=== PATIENT | male | born 1970 | race African-American/Black ===

== ENCOUNTER 2016-11-20 10:43 | Inpatient (IN) | payer OTHER ==
[2016-11-20 12:39] VITALS: BMI 20.6
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
[2016-11-20] MEDS ORDERED: guaiFENesin/D-METHORPHAN HB 10 ML UNIT-DOSE CUPS PO PRN (15:43)
[2016-11-20] MEDS ORDERED: MENTHOL/PHENOL 1 EACH UD MM PRN (15:43)
[2016-11-20] MEDS ORDERED: MAGNESIUM CITRATE 300 ML BOTTLE PO PRN (15:43)
[2016-11-20] MEDS ORDERED: MAG HYDROX/AL HYDROX/SIMETH 30 ML UNIT-DOSE CUP PO PRN (15:43)
[2016-11-20] MEDS ORDERED: LOPERAMIDE HCL 2 MG CAPSULE PO PRN (15:43)
[2016-11-20] MEDS ORDERED: NICOTINE POLACRILEX 2 MG GUM BC PRN (15:43)
[2016-11-20] MEDS ORDERED: P-EPHED 60MG/TRIPROLIDI 2.5MG TABLET PO PRN (15:43)
[2016-11-20] MEDS ORDERED: diphenhydrAMINE HCL 50 MG CAPSULE PO PRN (15:43)
[2016-11-20] MEDS ORDERED: hydrOXYzine PAMOATE 50 MG CAPSULE (FP) PO PRN (15:43)
[2016-11-20] MEDS ORDERED: MAGNESIUM HYDROX 2400MG/30ML ORAL SUSPENSION 30 ML CUP PO PRN (15:43)
[2016-11-20] MEDS ORDERED: ACETAMINOPHEN 325 MG TABLET (FP) PO PRN (15:43)
[2016-11-20] MEDS ORDERED: IBUPROFEN 400 MG TABLET (FP) PO PRN (15:43)
[2016-11-20 17:08] LABS: MCH 31.5 pg (25.7-33.7); MCHC 33.8 g/dl (32.0-35.9); MEAN CELL VOLUME 93.1 fl (80-96); MEAN PLT VOLUME 8.2 fl (7.5-11.1); PLATELET COUNT 284 K/MM3 (134-434); RDW 13.7 % (11.9-15.9); WHITE BLOOD COUNT 4.8 K/mm3 (4.0-10.0)
[2016-11-20 17:18] LABS: ALBUMIN 3.4 g/dl (3.4-5.0); ANION GAP 6 (8-16); CALCIUM 8.8 mg/dL (8.5-10.1); CO2 27 mmol/L (21-32); GLUCOSE,RANDOM 116 mg/dL (74-106); SGOT/AST 25 U/L (15-37); SGPT/ALT 33 U/L (12-78)
[2016-11-20] MEDS ORDERED: TUBERCULIN PPD 5 TU/0.1ML VIAL ID ONE (17:18)
[2016-11-20 17:20] LABS: ALK PHOS 113 U/L (45-117); BILIRUBIN,TOTAL 0.3 mg/dL (0.2-1.0); TOT PROT 6.6 g/dl (6.4-8.2)
[2016-11-20] MEDS: NICOTINE 21 MG/24 HOURS TOPICAL PATCH TD SCH (17:50)
[2016-11-20] MEDS: THIAMINE HCL 100 MG TABLET (FP) PO SCH (21:21)
[2016-11-20 21:26] LABS: URINE APPEARANCE SLCLOUDY; URINE BILIRUBIN NEGATIVE (NEGATIVE); URINE BLOOD NEGATIVE (NEGATIVE); URINE COLOR LTYELLOW; URINE GLUCOSE (UA) NEGATIVE (NEGATIVE); URINE KETONE NEGATIVE (NEGATIVE); URINE NITRITE NEGATIVE (NEGATIVE); URINE PROTEIN NEGATIVE (NEGATIVE); URINE UROBILINOGEN NEGATIVE mg/dL (0.2-1.0)
[2016-11-20 21:39] LABS: URINE LEUK ESTERASE 3+ (NEGATIVE)
[2016-11-20 21:47] LABS: CALCIUM OXALATE CRYSTALS RARE /hpf (NONE SEEN); URINE RBC 8 /hpf (0-3); URINE WBC 24 /hpf (3-5)
[2016-11-21] MEDS: NICOTINE 21 MG/24 HOURS TOPICAL PATCH TD SCH (10:26)
[2016-11-21] MEDS: PRENATAL VITAMINS W/ FOLIC ACID TABLET (FP) PO SCH (10:26)
--- NOTE | 2016-11-21 10:56 | HP ---
Psychiatrist Admission - Data Date of interview: 11/21/16 Admission source: Self-referred Identifying data: This is the first [facility] admission for this 46 years old single Black male, father of 5 children, unemployed on public assistance, homeless Medical History: Significant for Asthma, and history of surgery right hand in 1994. Smokes 10 cigarettes daily Psychiatric History: Reports that his first psychiatric contact was in in 1991 when he was admitted to [facility] for depression/anxiety in the context of of a cousin. Reports multiple subsequent admissions to [facility] and most recently to [facility] in 1994. Reports seeing a few psychiatrist in [place]. He last saw Dr Chakraborty last month and was prescribed Prozac 20 mg po daily and Xanax 1 mg po BID. He does not want to continue medication during that admission. At present, reports feeling depressed due to psychosocial stressors Physical/Sexual Abuse/Trauma History: Denies history of verbal, physical or sexual abuse as well as DV relationship Additional Comment: Reports history of multiple arrests including 4 felony convictions. No parole/probation currently Vital Signs: Vital Signs - 24 hr 11/20/16 11/21/16 11/21/16 12:33 00:30 03:30 Temperature 96.8 F L Pulse Rate 89 Respiratory 20 18 18 Rate Blood Pressure 126/82 11/21/16 07:02 Temperature 98.5 F Pulse Rate 91 H Respiratory 18 Rate Blood Pressure 118/83 Allergies/Adverse Reactions: Allergies Allergy/AdvReac Type Severity Reaction Status Date / Time No Known Allergies Allergy Verified 11/20/16 14:56 Date of last physical exam: 11/20/16 Concur with the findings of this exam: Yes - Substance Abuse/Tx History Hx Alcohol Use: No Hx Substance Use: Yes Substance Use Type: Cocaine (Started smoking crack cocaine at age 46, consumes $ 100-150 worth daily. Last smoked on 11/19/16), Marijuana (Started smoking marijuana at age 11, consumes $20 worth daily. Last smoked on 11/19/16) Hx Substance Use Treatment: Yes ([facility] inpatient rehab 02/15/16-03/15/16) Mental Status Exam - Mental Status Exam Alert and Oriented to: Time, Place, Person Cognitive Function: Fair Patient Appearance: Well Groomed Mood: Depressed Affect: Appropriate Patient Behavior: Cooperative Speech Pattern: Clear Voice Loudness: Normal Thought Process: Intact Thought Disorder: Not Present Hallucinations: Denies Suicidal Ideation: Denies Homicidal Ideation: Denies Insight/Judgement: Fair Sleep: Well Appetite: Good Muscle strength/Tone: Normal Gait/Station: Normal Psychiatric Findings - Problem List ([place] 1, 2,3) (1) Cocaine dependence Current Visit: Yes Status: Acute (2) Nicotine dependence Current Visit: Yes Status: Acute (3) Depressive disorder Current Visit: Yes Status: Acute (4) Substance induced mood disorder Current Visit: Yes Status: Acute (5) Asthma Current Visit: Yes Status: Acute (6) Laceration of face Current Visit: Yes Status: Acute (7) Subconjunctival hemorrhage of right eye Current Visit: Yes Status: Acute (8) Cannabis dependence Current Visit: No Status: Acute - Initial Treatment Plan Initial Treatment Plan: Monitor progress
[2016-11-21 11:29] LABS: HIV 1 & 2 AB NEGATIVE; HIV 1 AGp24 NEGATIVE
--- NOTE | 2016-11-21 16:00 | EKG ---
Test Reason : Blood Pressure : / mmHG Vent. Rate : 080 BPM Atrial Rate : 080 BPM P-R Int : 132 ms QRS Dur : 082 ms QT Int : 378 ms P-R-T Axes : 073 081 068 degrees QTc Int : 435 ms NORMAL SINUS RHYTHM VOLTAGE CRITERIA FOR LEFT VENTRICULAR HYPERTROPHY ABNORMAL ECG NO PREVIOUS ECGS AVAILABLE Confirmed by ADAM BARBER, CANDACE ([id number]) on 11/21/2016 4:00:27 PM Referred By: Dewayne Gupta Confirmed By:CANDACE MEDINA MD
[2016-11-21] MEDS: THIAMINE HCL 100 MG TABLET (FP) PO SCH (21:42)
[2016-11-22] MEDS: PRENATAL VITAMINS W/ FOLIC ACID TABLET (FP) PO SCH (10:03)
[2016-11-22] MEDS: NICOTINE 21 MG/24 HOURS TOPICAL PATCH TD SCH (10:03)
[2016-11-22] MEDS: NAPROXEN 500 MG TABLET (FP) PO SCH (22:03)
[2016-11-22] MEDS: PANTOPRAZOLE 40 MG TABLET (FP) PO SCH (22:04)
[2016-11-22] MEDS: BACITRACIN 0.9 GM PACKET TP SCH (22:04)
[2016-11-22] MEDS: THIAMINE HCL 100 MG TABLET (FP) PO SCH (22:06)
[2016-11-23] MEDS: PRENATAL VITAMINS W/ FOLIC ACID TABLET (FP) PO SCH (09:50)
[2016-11-23] MEDS: NICOTINE 21 MG/24 HOURS TOPICAL PATCH TD SCH (09:50)
[2016-11-23] MEDS: NAPROXEN 500 MG TABLET (FP) PO SCH ×2 (09:50→21:37)
[2016-11-23] MEDS: PANTOPRAZOLE 40 MG TABLET (FP) PO SCH (09:50)
[2016-11-23] MEDS: BACITRACIN 0.9 GM PACKET TP SCH (09:50)
[2016-11-23] MEDS: THIAMINE HCL 100 MG TABLET (FP) PO SCH (21:36)
[2016-11-24 07:24] VITALS: BP 102/68; PULSE 86; TEMP 99
[2016-11-24] MEDS: NICOTINE 21 MG/24 HOURS TOPICAL PATCH TD SCH (09:59)
[2016-11-24] MEDS: PANTOPRAZOLE 40 MG TABLET (FP) PO SCH (09:59)
[2016-11-24] MEDS: BACITRACIN 0.9 GM PACKET TP SCH (09:59)
[2016-11-24] MEDS: PRENATAL VITAMINS W/ FOLIC ACID TABLET (FP) PO SCH (09:59)
[2016-11-24] MEDS: NAPROXEN 500 MG TABLET (FP) PO SCH (09:59)
== END 2016-11-24 14:15 | disposition left against medical advice (07) | DRG 770 ==
LOC: YASAS 10:43 → Y3W 16:42
PROVIDERS: ADMIT Psychiatry & Neurology Psychiatry; ATTEND Psychiatry & Neurology Psychiatry
PROC: HZ42ZZZ Group Counseling for Substance Abuse Treatment, Cognitive-Behavioral (ICD-10-PCS; principal; 2016-11-20)
DX: F14.20 Cocaine dependence, uncomplicated (principal); F12.20 Cannabis dependence, uncomplicated; F17.210 Nicotine dependence, cigarettes, uncomplicated; F39 Unspecified mood [affective] disorder; F19.24 Other psychoactive substance dependence with psychoactive substance-induced mood disorder; J45.909 Unspecified asthma, uncomplicated; H11.31 Conjunctival hemorrhage, right eye; S01.81XD Laceration without foreign body of other part of head, subsequent encounter; X58.XXXD Exposure to other specified factors, subsequent encounter
CPT/HCPCS: 36415; 80053; 81003; 81015; 85027; 86593; 87389; 93005; 93010

== ENCOUNTER 2017-01-15 09:06 | Inpatient (IN) | payer OTHER ==
[2017-01-15 10:51] VITALS: BMI 20.9
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
[2017-01-15] MEDS ORDERED: hydrOXYzine PAMOATE 25 MG CAPSULE (FP) PO PRN (11:52)
[2017-01-15] MEDS ORDERED: MAGNESIUM CITRATE 300 ML BOTTLE PO PRN (11:52)
[2017-01-15] MEDS ORDERED: MENTHOL/PHENOL 1 EACH UD MM PRN (11:52)
[2017-01-15] MEDS ORDERED: chlordiazePOXIDE HCL 25 MG CAPSULE PO PRN (11:52)
[2017-01-15] MEDS ORDERED: MAG HYDROX/AL HYDROX/SIMETH 30 ML UNIT-DOSE CUP PO PRN (11:52)
[2017-01-15] MEDS ORDERED: MAGNESIUM HYDROX 2400MG/30ML ORAL SUSPENSION 30 ML CUP PO PRN (11:52)
[2017-01-15] MEDS ORDERED: P-EPHED 60MG/TRIPROLIDI 2.5MG TABLET PO PRN (11:52)
[2017-01-15] MEDS ORDERED: ACETAMINOPHEN 325 MG TABLET (FP) PO PRN (11:52)
[2017-01-15] MEDS ORDERED: guaiFENesin/D-METHORPHAN HB 10 ML UNIT-DOSE CUPS PO PRN (11:52)
[2017-01-15] MEDS ORDERED: LOPERAMIDE HCL 2 MG CAPSULE PO PRN (11:52)
[2017-01-15] MEDS ORDERED: IBUPROFEN 400 MG TABLET (FP) PO PRN (11:52)
[2017-01-15] MEDS ORDERED: ALBUTEROL SO4 18 GM HFA INHALER IH PRN (11:56)
[2017-01-15] MEDS ORDERED: chlordiazePOXIDE HCL 25 MG CAPSULE PO ONE (12:34)
[2017-01-15] MEDS: NICOTINE 14 MG/24 HOURS TOPICAL PATCH TD SCH (13:18)
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
[2017-01-15] MEDS: chlordiazePOXIDE HCL 25 MG CAPSULE PO SCH ×2 (18:07→22:17)
[2017-01-15] MEDS: THIAMINE HCL 100 MG TABLET (FP) PO SCH (22:17)
[2017-01-15 22:30] LABS: URINE APPEARANCE SLCLOUDY; URINE BILIRUBIN NEGATIVE (NEGATIVE); URINE BLOOD NEGATIVE (NEGATIVE); URINE COLOR YELLOW; URINE GLUCOSE (UA) NEGATIVE (NEGATIVE); URINE KETONE NEGATIVE (NEGATIVE); URINE NITRITE NEGATIVE (NEGATIVE); URINE PROTEIN NEGATIVE (NEGATIVE); URINE UROBILINOGEN NEGATIVE mg/dL (0.2-1.0)
[2017-01-16] MEDS: chlordiazePOXIDE HCL 25 MG CAPSULE PO SCH ×4 (05:33→22:41)
[2017-01-16 10:34] LABS: MCH 30.5 pg (25.7-33.7); MCHC 33.2 g/dl (32.0-35.9); MEAN PLT VOLUME 9.1 fl (7.5-11.1); PLATELET COUNT 234 K/MM3 (134-434); RDW 12.9 % (11.9-15.9); WHITE BLOOD COUNT 5.1 K/mm3 (4.0-10.0)
[2017-01-16] MEDS: PRENATAL VITAMINS W/ FOLIC ACID TABLET (FP) PO SCH (10:47)
[2017-01-16 10:55] LABS: ALBUMIN 3.5 g/dl (3.4-5.0); ANION GAP 13 (8-16); BILIRUBIN,TOTAL 0.4 mg/dL (0.2-1.0); CALCIUM 8.6 mg/dL (8.5-10.1); CO2 23 mmol/L (21-32); CREATININE 1.1 mg/dL (0.7-1.3); GLUCOSE,RANDOM 122 mg/dL (74-106); SGOT/AST 22 U/L (15-37); SGPT/ALT 22 U/L (12-78); TOT PROT 6.5 g/dl (6.4-8.2)
[2017-01-16 10:56] LABS: ALK PHOS 120 U/L (45-117)
[2017-01-16] MEDS: NICOTINE 14 MG/24 HOURS TOPICAL PATCH TD SCH (11:00)
--- NOTE | 2017-01-16 11:01 | PN ---
S CIWA - CIWA Score Nausea/Vomitin Muscle Tremors: 3 Anxiety: 3 Agitation: 2 Paroxysmal Sweats: 1-Minimal Palms Moist Orientation: 0-Oriented Tacttile Disturbances: 1-Very Mild Itch/Numbness Auditory Disturbances: 1-Very Mild Visual Disturbances: 0-None Headache: 2-Mild CIWA-Ar Total Score: 16 BHS Progress Note (SOAP) Subjective: ALERT,IRRITABLE,ANXIOUS,INTERRUPTED SLEEP,TREMOR Objective: 01/16/17 10:58 Vital Signs Temperature 97.3 F L 01/16/17 10:33 Pulse Rate 107 H 01/16/17 10:33 Respiratory Rate 18 01/16/17 10:33 Blood Pressure 150/60 01/16/17 10:33 O2 Sat by Pulse Oximetry (%) EKG NSR,LVH NO CHEST PAIN,NO SOB,NO DIZZINESS Laboratory Last Values WBC 5.1 K/mm3 (4.0-10.0) 01/16/17 06:00 RBC 4.35 M/mm3 (4.00-5.60) 01/16/17 06:00 Hgb 13.3 GM/dL (11.7-16.9) 01/16/17 06:00 Hct 40.0 % (35.4-49) 01/16/17 06:00 MCV 92.0 fl (80-96) 01/16/17 06:00 MCH 30.5 pg (25.7-33.7) 01/16/17 06:00 MCHC 33.2 g/dl (32.0-35.9) 01/16/17 06:00 RDW 12.9 % (11.9-15.9) 01/16/17 06:00 Plt Count 234 K/MM3 (134-434) 01/16/17 06:00 MPV 9.1 fl (7.5-11.1) D 01/16/17 06:00 POC Glucometer 122 UNITS (80-120) 01/16/17 05:35 Urine Color Yellow 01/15/17 18:55 Urine Appearance Slcloudy 01/15/17 18:55 Urine pH 5.0 (5.0-8.0) 01/15/17 18:55 Ur Specific [place] 1.025 (1.001-1.035) 01/15/17 18:55 Urine Protein Negative (NEGATIVE) 01/15/17 18:55 Urine Glucose (UA) Negative (NEGATIVE) 01/15/17 18:55 Urine Ketones Negative (NEGATIVE) 01/15/17 18:55 Urine Blood Negative (NEGATIVE) 01/15/17 18:55 Urine Nitrite Negative (NEGATIVE) 01/15/17 18:55 Urine Bilirubin Negative (NEGATIVE) 01/15/17 18:55 Urine Urobilinogen Negative mg/dL (0.2-1.0) 01/15/17 18:55 LABS PENDING Assessment: 01/16/17 11:00 WITHDRAWAL SYMPTOM Plan: CONTINUE DETOX
[2017-01-16 11:09] LABS: URINE LEUK ESTERASE TRACE (NEGATIVE)
--- NOTE | 2017-01-16 12:34 | EKG ---
Test Reason : Blood Pressure : / mmHG Vent. Rate : 083 BPM Atrial Rate : 083 BPM P-R Int : 130 ms QRS Dur : 082 ms QT Int : 384 ms P-R-T Axes : 077 082 076 degrees QTc Int : 451 ms NORMAL SINUS RHYTHM MODERATE VOLTAGE CRITERIA FOR LVH, MAY BE NORMAL VARIANT BORDERLINE ECG WHEN COMPARED WITH ECG OF 20-NOV-2016 21:18, NO SIGNIFICANT CHANGE WAS FOUND Confirmed by ADAM BARBER, CANDACE ([id number]) on 01/16/2017 12:34:35 PM Referred By: Confirmed By:CANDACE MEDINA MD
[2017-01-16 13:30] LABS: URINE RBC 0-1 /hpf (0-3)
[2017-01-16 13:31] LABS: CALCIUM OXALATE CRYSTALS FEW /hpf (NONE SEEN); URINE BACTERIA RARE /hpf (NEGATIVE)
[2017-01-16] MEDS: THIAMINE HCL 100 MG TABLET (FP) PO SCH (22:41)
[2017-01-17] MEDS: chlordiazePOXIDE HCL 25 MG CAPSULE PO SCH ×2 (05:27→11:09)
[2017-01-17] MEDS: PRENATAL VITAMINS W/ FOLIC ACID TABLET (FP) PO SCH (11:09)
[2017-01-17] MEDS: NICOTINE 14 MG/24 HOURS TOPICAL PATCH TD SCH (11:27)
--- NOTE | 2017-01-17 11:45 | PN ---
S CIWA - CIWA Score Nausea/Vomitin Muscle Tremors: 3 Anxiety: 2 Agitation: 2 Paroxysmal Sweats: 1-Minimal Palms Moist Orientation: 0-Oriented Tacttile Disturbances: 1-Very Mild Itch/Numbness Auditory Disturbances: 1-Very Mild Visual Disturbances: 0-None Headache: 2-Mild CIWA-Ar Total Score: 15 BHS Progress Note (SOAP) Subjective: alert,irritable,anxious,interrupted sleep,tremor Objective: 01/17/17 11:44 Vital Signs Temperature 98.0 F 01/17/17 10:22 Pulse Rate 97 H 01/17/17 10:22 Respiratory Rate 16 01/17/17 10:22 Blood Pressure 118/75 01/17/17 10:22 O2 Sat by Pulse Oximetry (%) Laboratory Last Values WBC 5.1 K/mm3 (4.0-10.0) 01/16/17 06:00 RBC 4.35 M/mm3 (4.00-5.60) 01/16/17 06:00 Hgb 13.3 GM/dL (11.7-16.9) 01/16/17 06:00 Hct 40.0 % (35.4-49) 01/16/17 06:00 MCV 92.0 fl (80-96) 01/16/17 06:00 MCH 30.5 pg (25.7-33.7) 01/16/17 06:00 MCHC 33.2 g/dl (32.0-35.9) 01/16/17 06:00 RDW 12.9 % (11.9-15.9) 01/16/17 06:00 Plt Count 234 K/MM3 (134-434) 01/16/17 06:00 MPV 9.1 fl (7.5-11.1) D 01/16/17 06:00 Sodium 143 mmol/L (136-145) 01/16/17 06:00 Potassium 3.8 mmol/L (3.5-5.1) 01/16/17 06:00 Chloride 107 mmol/L (98-107) 01/16/17 06:00 Carbon Dioxide 23 mmol/L (21-32) 01/16/17 06:00 Anion Gap 13 (8-16) 01/16/17 06:00 BUN 13 mg/dL (7-18) D 01/16/17 06:00 Creatinine 1.1 mg/dL (0.7-1.3) 01/16/17 06:00 Creat Clearance w eGFR > 60 (>60) 01/16/17 06:00 POC Glucometer 91 UNITS (80-120) 01/17/17 05:29 Random Glucose 122 mg/dL (74-106) H 01/16/17 06:00 Calcium 8.6 mg/dL (8.5-10.1) 01/16/17 06:00 Total Bilirubin 0.4 mg/dL (0.2-1.0) D 01/16/17 06:00 AST 22 U/L (15-37) 01/16/17 06:00 ALT 22 U/L (12-78) D 01/16/17 06:00 Alkaline Phosphatase 120 U/L (45-117) H 01/16/17 06:00 Total Protein 6.5 g/dl (6.4-8.2) 01/16/17 06:00 Albumin 3.5 g/dl (3.4-5.0) 01/16/17 06:00 Urine Color Yellow 01/15/17 18:55 Urine Appearance Slcloudy 01/15/17 18:55 Urine pH 5.0 (5.0-8.0) 01/15/17 18:55 Ur Specific [place] 1.025 (1.001-1.035) 01/15/17 18:55 Urine Protein Negative (NEGATIVE) 01/15/17 18:55 Urine Glucose (UA) Negative (NEGATIVE) 01/15/17 18:55 Urine Ketones Negative (NEGATIVE) 01/15/17 18:55 Urine Blood Negative (NEGATIVE) 01/15/17 18:55 Urine Nitrite Negative (NEGATIVE) 01/15/17 18:55 Urine Bilirubin Negative (NEGATIVE) 01/15/17 18:55 Urine Urobilinogen Negative mg/dL (0.2-1.0) 01/15/17 18:55 Ur Leukocyte Esterase Trace (NEGATIVE) H 01/15/17 18:55 Urine RBC 0-1 /hpf (0-3) 01/15/17 18:55 Urine WBC 2-4 (0-2) 01/15/17 18:55 Calcium Oxalate Crystal Few /hpf (NONE SEEN) 01/15/17 18:55 Amorphous Urates Moderate /hpf (NONE SEEN) 01/15/17 18:55 Urine Bacteria Rare /hpf (NEGATIVE) 01/15/17 18:55 RPR Titer Nonreactive (NONREACTIVE) 01/16/17 06:00 Assessment: 01/17/17 11:45 withdrawal symptom Plan: continue detox
[2017-01-17] MEDS: chlordiazePOXIDE 5 MG CAPSULE PO SCH ×2 (17:37→22:15)
[2017-01-17] MEDS: THIAMINE HCL 100 MG TABLET (FP) PO SCH (22:15)
[2017-01-18] MEDS: chlordiazePOXIDE 5 MG CAPSULE PO SCH ×2 (05:18→11:27)
[2017-01-18 06:23] VITALS: PULSE 97
[2017-01-18 10:53] VITALS: BP 134/85; TEMP 97.9
[2017-01-18] MEDS: PRENATAL VITAMINS W/ FOLIC ACID TABLET (FP) PO SCH (11:27)
[2017-01-18] MEDS: NICOTINE 14 MG/24 HOURS TOPICAL PATCH TD SCH (11:27)
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
[2017-01-18] MEDS ORDERED: chlordiazePOXIDE HCL 10 MG CAPSULE PO SCH (17:00)
== END 2017-01-18 11:40 | disposition home or self-care (01) | DRG 774 ==
LOC: YASAS 09:06 → Y6N 12:13
PROVIDERS: ADMIT Internal Medicine; ATTEND Internal Medicine
PROC: HZ2ZZZZ Detoxification Services for Substance Abuse Treatment (ICD-10-PCS; principal; 2017-01-15)
DX: F10.230 Alcohol dependence with withdrawal, uncomplicated (principal); F14.20 Cocaine dependence, uncomplicated; F12.20 Cannabis dependence, uncomplicated; F17.210 Nicotine dependence, cigarettes, uncomplicated; F19.24 Other psychoactive substance dependence with psychoactive substance-induced mood disorder; F41.8 Other specified anxiety disorders; G47.00 Insomnia, unspecified; E11.9 Type 2 diabetes mellitus without complications; Z21 Asymptomatic human immunodeficiency virus [HIV] infection status
CPT/HCPCS: 36415; 80053; 81003; 81015; 85027; 86593; 93005; 93010

== ENCOUNTER 2021-03-12 10:40 | Inpatient (IN) | payer OTHER ==
[2021-03-12 11:26] VITALS: BMI 21.7
[2021-03-12] MEDS ORDERED: MENTHOL/PHENOL 1 EACH UD MM PRN (15:50)
[2021-03-12] MEDS ORDERED: MAG HYDROX/AL HYDROX/SIMETH 30 ML UNIT-DOSE CUP PO PRN (15:50)
[2021-03-12] MEDS ORDERED: METHOCARBAMOL 500 MG TABLET PO PRN (15:50)
[2021-03-12] MEDS ORDERED: BISMUTH SUBSALICYLATE 524 MG/30 ML PO PRN (15:50)
[2021-03-12] MEDS ORDERED: NICOTINE 10 MG CARTRIDGE (INHALER) IH PRN (15:50)
[2021-03-12] MEDS ORDERED: MAGNESIUM CITRATE 300 ML BOTTLE PO PRN (15:50)
[2021-03-12] MEDS ORDERED: IBUPROFEN 400 MG TABLET (FP) PO PRN (15:50)
[2021-03-12] MEDS ORDERED: ONDANSETRON *ODT* 4 MG TABLET SL PRN (15:50)
[2021-03-12] MEDS ORDERED: MAGNESIUM HYDROX 2400MG/30ML ORAL SUSPENSION 30 ML CUP PO PRN (15:50)
[2021-03-12] MEDS ORDERED: ACETAMINOPHEN 325 MG TABLET (FP) PO PRN ×2 (15:50)
[2021-03-12] MEDS ORDERED: MELATONIN 5 MG TABLETS PO SCH (22:00)
[2021-03-12] MEDS ORDERED: THIAMINE HCL 100 MG TABLET (FP) PO SCH (22:00)
[2021-03-12] MEDS: hydrOXYzine PAMOATE 25 MG CAPSULE (FP) PO SCH (22:09)
[2021-03-13] MEDS: hydrOXYzine PAMOATE 25 MG CAPSULE (FP) PO SCH ×3 (05:12→13:24)
[2021-03-13] MEDS ORDERED: PRENATAL VITAMINS W/ FOLIC ACID TABLET (FP) PO SCH (10:00)
[2021-03-13] MEDS ORDERED: amLODIPine BESYLATE 5 MG TABLET (FP) PO SCH (10:45)
[2021-03-13 10:50] LABS: HEMATOCRIT 43.7 % (35.4-49); HEMOGLOBIN 14.9 GM/dL (11.7-16.9); MCH 31.6 pg (25.7-33.7); MCHC 34.1 g/dl (32.0-35.9); MEAN CELL VOLUME 92.5 fl (80-96); MEAN PLT VOLUME 7.7 fl (7.5-11.1); PLATELET COUNT 296 10^3/uL (134-434); RBC 4.73 M/mm3 (4.00-5.60); RDW 13.7 % (11.9-15.9); WHITE BLOOD COUNT 3.6 K/mm3 (4.0-10.0)
[2021-03-13 11:06] LABS: CALCIUM 8.9 mg/dL (8.5-10.1)
[2021-03-13 11:07] LABS: ALBUMIN 3.6 g/dl (3.4-5.0)
[2021-03-13 11:11] LABS: BILIRUBIN,TOTAL 0.3 mg/dL (0.2-1); CREATININE 1.1 mg/dL (0.55-1.3); TOT PROT 6.9 g/dl (6.4-8.2)
[2021-03-13 12:36] VITALS: BP 142/99; PULSE 89; TEMP 97.4
[2021-03-13 13:07] LABS: HIV INTERPRETATION NEGATIVE (NEGATIVE)
== END 2021-03-13 13:38 | disposition other institution (70) | DRG 774 ==
LOC: YASAS 10:40 → UNDOADMIN 20:32 → Y6N 20:32
PROVIDERS: ADMIT Allergy & Immunology; ATTEND Allergy & Immunology
PROC: HZ2ZZZZ Detoxification Services for Substance Abuse Treatment (ICD-10-PCS; principal; 2021-03-12)
DX: F10.230 Alcohol dependence with withdrawal, uncomplicated (principal); F14.20 Cocaine dependence, uncomplicated; F12.20 Cannabis dependence, uncomplicated; F17.210 Nicotine dependence, cigarettes, uncomplicated; F31.89 Other bipolar disorder; F41.9 Anxiety disorder, unspecified; H91.91 Unspecified hearing loss, right ear
CPT/HCPCS: 36415; 80053; 85027; 86593; 86780; 87389; C9803-CS; U0003; U0005

== ENCOUNTER 2021-03-13 13:48 | Inpatient (IN) | payer OTHER ==
[2021-03-13] MEDS ORDERED: MENTHOL/PHENOL 1 EACH UD MM PRN (17:37)
[2021-03-13] MEDS ORDERED: P-EPHED 60MG/TRIPROLIDI 2.5MG TABLET PO PRN (17:37)
[2021-03-13] MEDS ORDERED: MAGNESIUM HYDROX 2400MG/30ML ORAL SUSPENSION 30 ML CUP PO PRN (17:37)
[2021-03-13] MEDS ORDERED: MAG HYDROX/AL HYDROX/SIMETH 30 ML UNIT-DOSE CUP PO PRN (17:37)
[2021-03-13] MEDS ORDERED: LOPERAMIDE HCL 2 MG CAPSULE PO PRN (17:37)
[2021-03-13] MEDS ORDERED: guaiFENesin 200 MG/10 ML 10 ML UNIT-DOSE CUPS PO PRN (17:37)
[2021-03-13] MEDS ORDERED: ACETAMINOPHEN 325 MG TABLET (FP) PO PRN (17:37)
[2021-03-13] MEDS ORDERED: MAGNESIUM CITRATE 300 ML BOTTLE PO PRN (17:37)
[2021-03-13] MEDS: MELATONIN 5 MG TABLETS PO SCH (21:17)
[2021-03-13] MEDS: THIAMINE HCL 100 MG TABLET (FP) PO SCH (21:17)
[2021-03-14 07:02] VITALS: TEMP 97.1
[2021-03-14] MEDS: amLODIPine BESYLATE 5 MG TABLET (FP) PO SCH (09:29)
[2021-03-14] MEDS: PRENATAL VITAMINS W/ FOLIC ACID TABLET (FP) PO SCH (09:29)
[2021-03-14] MEDS: THIAMINE HCL 100 MG TABLET (FP) PO SCH (21:28)
[2021-03-14] MEDS: MELATONIN 5 MG TABLETS PO SCH (21:29)
[2021-03-14] MEDS: IBUPROFEN 400 MG TABLET (FP) PO PRN (21:29)
[2021-03-15] MEDS: IBUPROFEN 400 MG TABLET (FP) PO PRN (09:25)
[2021-03-15] MEDS: amLODIPine BESYLATE 5 MG TABLET (FP) PO SCH (09:25)
[2021-03-15] MEDS: PRENATAL VITAMINS W/ FOLIC ACID TABLET (FP) PO SCH (09:25)
[2021-03-15 10:05] VITALS: BP 114/76; PULSE 106
== END 2021-03-15 10:28 | disposition home or self-care (01) | DRG 772 ==
LOC: YASAS 13:48 → Y3E 13:49
PROVIDERS: ADMIT Allergy & Immunology; ATTEND Allergy & Immunology
PROC: HZ42ZZZ Group Counseling for Substance Abuse Treatment, Cognitive-Behavioral (ICD-10-PCS; principal; 2021-03-13)
DX: F10.20 Alcohol dependence, uncomplicated (principal); F14.20 Cocaine dependence, uncomplicated; F12.20 Cannabis dependence, uncomplicated; F17.210 Nicotine dependence, cigarettes, uncomplicated; J45.909 Unspecified asthma, uncomplicated; H91.91 Unspecified hearing loss, right ear; L84 Corns and callosities; Z86.59 Personal history of other mental and behavioral disorders